=== PATIENT | female | born 1950 | race Caucasian/White ===

== ENCOUNTER 2017-11-26 22:10 | Emergency (ER) | payer MEDICARE ==
[2017-11-26] MEDS ORDERED: ONDANSETRON 4 MG/2 ML VIAL IVP STA (23:00)
[2017-11-26] MEDS ORDERED: SODIUM CHLORIDE 0.9% 500 ML IV STA (23:00)
--- NOTE | 2017-11-26 23:04 | ED ---
General Adult HPI - General Chief complaint: Abdominal Pain Stated complaint: Vomiting Time Seen by Provider: 11/26/17 22:45 Source: patient, RN notes reviewed Mode of arrival: ambulatory Limitations: no limitations - History of Present Illness Initial comments: 67-year-old female presents for evaluation of left upper quadrant abdominal pain. Patient's pain began abruptly several hours prior to presentation. She has had 5-6 episodes of vomiting which according to the patient has been bilious. She's had severe nausea associated with this. No blood in the vomit. Patient had a normal bowel movement this morning but has not passed gas since the development of her pain. She does have history of appendectomy, hysterectomy, cholecystectomy. No fever or chills. No dysuria. She does admit to decreased by mouth intake over the past 12 hours. She has also having some low back pain which she attributes to moving heavy boxes throughout the day today. - Related Data Previous Rx's Medication Instructions Recorded Ondansetron Odt [Zofran Odt] 4 mg PO Q8HR PRN #10 tab 11/27/17 Allergies Allergy/AdvReac Type Severity Reaction Status Date / Time Iodinated Contrast- Oral and Allergy Rash/Hives Verified 11/26/17 22:25 IV Dye Review of Systems ROS Statement: Those systems with pertinent positive or pertinent negative responses have been documented in the HPI. ROS Other: All systems not noted in ROS Statement are negative. Past Medical History Past Medical History: Fibromyalgia, GERD/Reflux History of Any Multi-Drug Resistant Organisms: None Reported Past Surgical History: Adenoidectomy, Appendectomy, Cholecystectomy, Hysterectomy, Tonsillectomy Additional Past Surgical History / Comment(s): bilateral knees. Past Psychological History: Depression Smoking Status: Former smoker Past Alcohol Use History: Occasional Past Drug Use History: Marijuana General Exam Limitations: no limitations General appearance: alert, in no apparent distress Head exam: Present: atraumatic, normocephalic Eye exam: Present: normal appearance, PERRL ENT exam: Present: mucous membranes dry Neck exam: Present: normal inspection. Absent: tenderness, meningismus Respiratory exam: Present: normal lung sounds bilaterally. Absent: respiratory distress, wheezes Cardiovascular Exam: Present: regular rate, normal rhythm GI/Abdominal exam: Present: soft, distended, tenderness (Left upper quadrant tenderness to palpation), diminished bowel sounds. Absent: guarding, rebound, rigid Extremities exam: Present: normal inspection, normal capillary refill Neurological exam: Present: alert, oriented X3, CN II-XII intact. Absent: motor sensory deficit Psychiatric exam: Present: normal affect, normal mood Skin exam: Present: warm, dry, intact. Absent: cyanosis, diaphoretic, erythema Course Vital Signs 11/26/17 11/26/17 22:17 23:24 Temperature 97.7 F 97.5 F L Pulse Rate 75 72 Respiratory 16 15 Rate Blood Pressure 161/78 144/71 O2 Sat by Pulse 100 99 Oximetry EKG Findings - EKG Comments: EKG Findings:: EKG: Normal sinus rhythm, ventricular rate 63, IN interval 146, QRS duration 84, QTC 452 no signs of ischemia Medical Decision Making - Medical Decision Making 67-year-old female presenting with vomiting and left upper quadrant abdominal pain. There is concern for obstruction, KUB is negative. CT is obtained this is negative for any acute intra-abdominal process. White blood cell count normal, hemoglobin stable, electrolytes within normal limits, lactic acid is normal at 1.2. Urinalysis does show 1+ ketones consistent with some dehydration from vomiting. Patient given Zofran and IV fluids. On reevaluation she's had no episodes of vomiting while in the emergency department. Pain is somewhat improved. Vital signs remained stable. She is otherwise well-appearing. She will be given outpatient follow-up and will repeat present emergency department with worsening or changing symptoms. - Lab Data Result diagrams: 11/26/17 22:50 11/26/17 22:50 Lab Results 11/26/17 11/26/17 11/26/17 Range/Units 22:50 22:50 22:50 WBC 6.8 (3.8-10.6) k/uL RBC 4.05 (3.80-5.40) m/uL Hgb 12.6 (11.4-16.0) gm/dL Hct 37.8 (34.0-46.0) % MCV 93.2 (80.0-100.0) fL MCH 31.0 (25.0-35.0) pg MCHC 33.3 (31.0-37.0) g/dL RDW 12.9 (11.5-15.5) % Plt Count 307 (150-450) k/uL Neutrophils % 75 % Lymphocytes % 19 % Monocytes % 5 % Eosinophils % 0 % Basophils % 0 % Neutrophils # 5.1 (1.3-7.7) k/uL Lymphocytes # 1.3 (1.0-4.8) k/uL Monocytes # 0.3 (0-1.0) k/uL Eosinophils # 0.0 (0-0.7) k/uL Basophils # 0.0 (0-0.2) k/uL PT (9.0-12.0) sec INR (<1.2) APTT (22.0-30.0) sec Sodium 141 (137-145) mmol/L Potassium 4.0 (3.5-5.1) mmol/L Chloride 103 (98-107) mmol/L Carbon Dioxide 24 (22-30) mmol/L Anion Gap 14 mmol/L BUN 18 H (7-17) mg/dL Creatinine 0.40 L (0.52-1.04) mg/dL Est GFR (CKD-EPI)AfAm >90 (>60 ml/min/1.73 sqM) Est GFR (CKD-EPI)NonAf >90 (>60 ml/min/1.73 sqM) Glucose 124 H (74-99) mg/dL Plasma Lactic Acid Jj 1.2 (0.7-2.0) mmol/L Calcium 10.2 (8.4-10.2) mg/dL Total Bilirubin 0.4 (0.2-1.3) mg/dL AST 23 (14-36) U/L ALT 38 (9-52) U/L Alkaline Phosphatase 56 (38-126) U/L Troponin I (0.000-0.034) ng/mL Total Protein 6.9 (6.3-8.2) g/dL Albumin 4.6 (3.5-5.0) g/dL Amylase 38 (30-110) U/L Lipase 105 (23-300) U/L Urine Color Urine Appearance (Clear) Urine pH (5.0-8.0) Ur Specific [place] (1.001-1.035) Urine Protein (Negative) Urine Glucose (UA) (Negative) Urine Ketones (Negative) Urine Blood (Negative) Urine Nitrite (Negative) Urine Bilirubin (Negative) Urine Urobilinogen (<2.0) mg/dL Ur Leukocyte Esterase (Negative) Urine RBC (0-5) /hpf Urine WBC (0-5) /hpf Ur Squamous Epith Cells (0-4) /hpf Urine Mucus (None) /hpf 11/26/17 11/26/17 11/26/17 Range/Units 22:50 22:50 22:50 WBC (3.8-10.6) k/uL RBC (3.80-5.40) m/uL Hgb (11.4-16.0) gm/dL Hct (34.0-46.0) % MCV (80.0-100.0) fL MCH (25.0-35.0) pg MCHC (31.0-37.0) g/dL RDW (11.5-15.5) % Plt Count (150-450) k/uL Neutrophils % % Lymphocytes % % Monocytes % % Eosinophils % % Basophils % % Neutrophils # (1.3-7.7) k/uL Lymphocytes # (1.0-4.8) k/uL Monocytes # (0-1.0) k/uL Eosinophils # (0-0.7) k/uL Basophils # (0-0.2) k/uL PT 12.2 H (9.0-12.0) sec INR 1.3 H (<1.2) APTT 23.1 (22.0-30.0) sec Sodium (137-145) mmol/L Potassium (3.5-5.1) mmol/L Chloride (98-107) mmol/L Carbon Dioxide (22-30) mmol/L Anion Gap mmol/L BUN (7-17) mg/dL Creatinine (0.52-1.04) mg/dL Est GFR (CKD-EPI)AfAm (>60 ml/min/1.73 sqM) Est GFR (CKD-EPI)NonAf (>60 ml/min/1.73 sqM) Glucose (74-99) mg/dL Plasma Lactic Acid Jj (0.7-2.0) mmol/L Calcium (8.4-10.2) mg/dL Total Bilirubin (0.2-1.3) mg/dL AST (14-36) U/L ALT (9-52) U/L Alkaline Phosphatase (38-126) U/L Troponin I <0.012 (0.000-0.034) ng/mL Total Protein (6.3-8.2) g/dL Albumin (3.5-5.0) g/dL Amylase (30-110) U/L Lipase (23-300) U/L Urine Color Yellow Urine Appearance Clear (Clear) Urine pH 6.5 (5.0-8.0) Ur Specific [place] 1.026 (1.001-1.035) Urine Protein Trace H (Negative) Urine Glucose (UA) Negative (Negative) Urine Ketones 1+ H (Negative) Urine Blood Small H (Negative) Urine Nitrite Negative (Negative) Urine Bilirubin Negative (Negative) Urine Urobilinogen <2.0 (<2.0) mg/dL Ur Leukocyte Esterase Small H (Negative) Urine RBC 10 H (0-5) /hpf Urine WBC 5 (0-5) /hpf Ur Squamous Epith Cells 1 (0-4) /hpf Urine Mucus Rare H (None) /hpf Disposition Clinical Impression: Abdominal pain, Nausea & vomiting Disposition: HOME SELF-CARE Condition: Fair Instructions: Abdominal Pain (ED), Acute Nausea and Vomiting (ED) Prescriptions: Ondansetron Odt [Zofran Odt] 4 mg PO Q8HR PRN #10 tab PRN Reason: Vomiting Is patient prescribed a controlled substance at d/c from ED?: No Referrals: None,Stated [Primary Care Provider] - 1-2 days Ty Dubois MD [STAFF PHYSICIAN] - 1-2 days Time of Disposition: 01:36
[2017-11-26 23:13] LABS: Basophils % (A) 0 %; Eosinophils % (A) 0 %; HCT 37.8 % (34.0-46.0); HGB 12.6 gm/dL (11.4-16.0); Lymphocytes # (A) 1.3 k/uL (1.0-4.8); Lymphocytes % (A) 19 %; MCHC 33.3 g/dL (31.0-37.0); MCV 93.2 fL (80.0-100.0); Mean Platelet Volume 7.4; Monocytes # (A) 0.3 k/uL (0-1.0); Monocytes % (A) 5 %; Neutrophils # (A) 5.1 k/uL (1.3-7.7); Neutrophils % (A) 75 %; Platelet Count 307 k/uL (150-450); RBC 4.05 m/uL (3.80-5.40); RDW 12.9 % (11.5-15.5); WBC 6.8 k/uL (3.8-10.6)
[2017-11-26 23:15] LABS: Appearance,Urine Clear (Clear); Bilirubin,Urine Negative (Negative); Blood,Urine Small (Negative); Color,Urine Yellow; Glucose,Urine (UA) Negative (Negative); Ketones,Urine 1+ (Negative); Leukocyte Esterase,Urine Small (Negative); Mucus,Urine Rare /hpf; Nitrite,Urine Negative (Negative); PH, Urine 6.5 (5.0-8.0); Protein,Urine Trace (Negative); RBC,Urine 10 /hpf (0-5); Specific Gravity,Urine 1.026 (1.001-1.035); Squamous Epithelial Cell,Urine 1 /hpf (0-4); Urobilinogen,Urine <2.0 mg/dL (<2.0); WBC,Urine 5 /hpf (0-5)
[2017-11-26 23:23] LABS: ALT 38 U/L (9-52); AST 23 U/L (14-36); Albumin 4.6 g/dL (3.5-5.0); Alkaline Phosphatase 56 U/L (38-126); Amylase 38 U/L (30-110); Anion Gap 14 mmol/L; Blood Urea Nitrogen 18 mg/dL (7-17); Calcium 10.2 mg/dL (8.4-10.2); Carbon Dioxide 24 mmol/L (22-30); Chloride 103 mmol/L (98-107); Glucose 124 mg/dL (74-99); INR 1.3 (<1.2); Lipase 105 U/L (23-300); Partial Thromboplastin Time 23.1 sec (22.0-30.0); Prothrombin Time 12.2 sec (9.0-12.0); Sodium 141 mmol/L (137-145); Total Bilirubin 0.4 mg/dL (0.2-1.3); Total Protein 6.9 g/dL (6.3-8.2)
[2017-11-26] MEDS ORDERED: IOPAMIDOL-300 CONTRAST 30 ML VIAL (ORAL USE) PO PRN (23:50)
[2017-11-26] MEDS ORDERED: methylPREDNISolone SOD SUCCI 125 MG/2 ML VIAL IV STA (23:51)
[2017-11-26] MEDS ORDERED: FAMOTIDINE 20 MG/2 ML VIAL IV STA (23:51)
[2017-11-26] MEDS ORDERED: diphenhydrAMINE 50 MG/ML 1 ML VIAL IVP STA (23:51)
--- NOTE | 2017-11-26 23:51 | XR ---
EXAMINATION TYPE: XR KUB DATE OF EXAM: 11/26/2017 COMPARISON: NONE HISTORY: Abdominal pain TECHNIQUE: 2 views FINDINGS: There is no sign of intestinal obstruction or pneumoperitoneum. Fecal pattern is normal. Th ere are chest leads. Lung bases are clear. There are no pathologic calcifications over the kidneys. T here are clips from cholecystectomy. There is no evidence of a mass. IMPRESSION: Nonacute abdomen.
[2017-11-27] MEDS ORDERED: RX INFO: IV CONTRAST WAS GIVEN 1 EACH MISC MISCELLANE PRN (00:19)
[2017-11-27] MEDS: RX INFO: IV CONTRAST WAS GIVEN 1 EACH MISC MISCELLANE PRN ×2 (00:54→00:55)
--- NOTE | 2017-11-27 01:17 | CT ---
EXAMINATION TYPE: CT abdomen pelvis w con DATE OF EXAM: 11/27/2017 COMPARISON: NONE HISTORY: ABDOMINAL PAIN CT DLP: 548.7 mGycm Automated exposure control for dose reduction was used. TECHNIQUE: Helical acquisition of images was performed from the lung bases through the pelvis. CONTRAST: Performed without Oral Contrast and with IV Contrast, patient injected with 100 mL of Isovue 300. FINDINGS: Lung bases are clear. There is no pleural effusion. Heart size is normal. The liver spleen pancreas appear normal. Bile ducts are not dilated. There are clips from cholecystec meri. There is no adrenal mass. Kidneys show satisfactory contrast opacification. There is no hydronephrosi s. Ureters are not dilated. There is no retroperitoneal adenopathy. There is no ascites. I see no int estinal wall thickening. There are no dilated loops. Bladder distends smoothly. Appendix is not defin itely seen. There is no sign of appendicitis. There is no sign of pelvic mass. There is spondylolysis of L5 with first-degree L5-S1 spondylolisthesis. IMPRESSION: NEGATIVE CT SCAN OF THE ABDOMEN AND PELVIS. I DO NOT SEE A CAUSE FOR ABDOMINAL PAIN. L5 SPONDYLOLYSIS WITH FIRST-DEGREE L5-S1 SPONDYLOLISTHESIS.
[2017-11-27 02:24] VITALS: BP 124/72; PULSE 67; RESP 18; TEMP 98.7
== END 2017-11-27 02:24 | disposition home or self-care (01) ==
LOC: EC 22:10
DX: R10.12 Left upper quadrant pain (principal); R11.2 Nausea with vomiting, unspecified; R82.4 Acetonuria; R14.0 Abdominal distension (gaseous); M54.5 Low back pain; R63.8 Other symptoms and signs concerning food and fluid intake; Z87.891 Personal history of nicotine dependence; Z91.041 Radiographic dye allergy status; Z90.49 Acquired absence of other specified parts of digestive tract; X50.0XXA Overexertion from strenuous movement or load, initial encounter
CPT/HCPCS: 36415; 93005; 80053; 82150; 83605; 83690; 84484; 85025; 85610; 85730; 81001; 74018; 74177; 99284; 96374; 96375 ×3; J1200; J2930; J2405; Q9967

== ENCOUNTER 2018-01-14 13:59 | Inpatient (IN) | payer MEDICARE ==
[2018-01-14] MEDS ORDERED: ONDANSETRON 4 MG/2 ML VIAL IVP STA (14:20)
[2018-01-14] MEDS ORDERED: SODIUM CHLORIDE 0.9% 1,000 ML IV STA (14:20)
[2018-01-14] MEDS ORDERED: PANTOPRAZOLE 40 MG/10 ML VIAL IVP STA (14:20)
[2018-01-14] MEDS ORDERED: MORPHINE SULFATE 2 MG/ML SYRINGE IV STA (14:20)
--- NOTE | 2018-01-14 14:21 | ED ---
General Adult HPI - General Chief complaint: Abdominal Pain Stated complaint: Vomiting Time Seen by Provider: 01/14/18 14:20 Source: patient, RN notes reviewed, old records reviewed Mode of arrival: wheelchair Limitations: no limitations - History of Present Illness Initial comments: This is a 67-year-old female the ER for evaluation. States she is presenting evaluation regards to abdominal pain severe abdominal pain with nausea vomiting. Patient is mildly cervical secondary to pain and nausea. Patient states she has history of similar pain before, significant history of multiple abdominal surgeries and patient also sever from fibromyalgia. Patient has no adequate pain control prior to emergency room visit - Related Data Home Medications Medication Instructions Recorded Confirmed Ascorbic Acid [Vitamin C] 500 mg PO DAILY 01/14/18 01/14/18 Cholecalciferol [Vitamin D3] 1,000 unit PO DAILY 01/14/18 01/14/18 Gamma E 1 tab PO DAILY 01/14/18 01/14/18 Levothyroxine Sodium [Synthroid] 112 mcg PO DAILY 01/14/18 01/14/18 Ubidecarenone [Co Q-10] 100 mg PO DAILY 01/14/18 01/14/18 Venlafaxine HCl [Effexor XR] 150 mg PO DAILY 01/14/18 01/14/18 Allergies Allergy/AdvReac Type Severity Reaction Status Date / Time Iodinated Contrast- Oral and Allergy Rash/Hives Verified 01/14/18 18:07 IV Dye Review of Systems ROS Statement: Those systems with pertinent positive or pertinent negative responses have been documented in the HPI. ROS Other: All systems not noted in ROS Statement are negative. Past Medical History Past Medical History: Fibromyalgia, GERD/Reflux History of Any Multi-Drug Resistant Organisms: None Reported Past Surgical History: Adenoidectomy, Appendectomy, Cholecystectomy, Hysterectomy, Tonsillectomy Additional Past Surgical History / Comment(s): bilateral knees. Past Psychological History: Depression Smoking Status: Former smoker Past Alcohol Use History: Daily Past Drug Use History: Marijuana General Exam Limitations: no limitations General appearance: alert, in no apparent distress Head exam: Present: atraumatic, normocephalic, normal inspection Eye exam: Present: normal appearance, PERRL, EOMI. Absent: scleral icterus, conjunctival injection, periorbital swelling ENT exam: Present: normal exam, mucous membranes moist Neck exam: Present: normal inspection. Absent: tenderness, meningismus, lymphadenopathy Respiratory exam: Present: normal lung sounds bilaterally. Absent: respiratory distress, wheezes, rales, rhonchi, stridor Cardiovascular Exam: Present: regular rate, normal rhythm, normal heart sounds. Absent: systolic murmur, diastolic murmur, rubs, gallop, clicks GI/Abdominal exam: Present: soft, tenderness, normal bowel sounds. Absent: distended, guarding, rebound, rigid Extremities exam: Present: normal inspection, full ROM, normal capillary refill. Absent: tenderness, pedal edema, joint swelling, calf tenderness Back exam: Present: normal inspection Neurological exam: Present: alert, oriented X3, CN II-XII intact Psychiatric exam: Present: normal affect, normal mood Skin exam: Present: warm, dry, intact, normal color. Absent: rash Course Vital Signs 01/14/18 01/14/18 01/14/18 14:05 15:35 17:21 Temperature 98.3 F 98.8 F 98.5 F Pulse Rate 84 78 74 Respiratory 18 18 18 Rate Blood Pressure 134/88 150/70 112/68 O2 Sat by Pulse 99 99 98 Oximetry - Reevaluation(s) Reevaluation #1: 01/14/18 15:23 Medical record is reviewed including prior surgical history Reevaluation #2: 01/14/18 19:10 Medical record is reviewed, pain is controlled Medical Decision Making - Medical Decision Making 67 female the ER for evaluation, positive SBO, history of multiple surgeries. Patient be admitted for nothing by mouth and pain control. - Lab Data Result diagrams: 01/14/18 14:27 01/14/18 14:27 Lab Results 01/14/18 01/14/18 01/14/18 Range/Units 14:27 14:27 14:27 WBC 13.3 H (3.8-10.6) k/uL RBC 5.18 (3.80-5.40) m/uL Hgb 16.0 D (11.4-16.0) gm/dL Hct 48.3 H (34.0-46.0) % MCV 93.2 (80.0-100.0) fL MCH 30.8 (25.0-35.0) pg MCHC 33.0 (31.0-37.0) g/dL RDW 13.1 (11.5-15.5) % Plt Count 366 (150-450) k/uL Neutrophils % 81 % Lymphocytes % 14 % Monocytes % 4 % Eosinophils % 1 % Basophils % 0 % Neutrophils # 10.8 H (1.3-7.7) k/uL Lymphocytes # 1.8 (1.0-4.8) k/uL Monocytes # 0.5 (0-1.0) k/uL Eosinophils # 0.1 (0-0.7) k/uL Basophils # 0.0 (0-0.2) k/uL Sodium 139 (137-145) mmol/L Potassium 4.2 (3.5-5.1) mmol/L Chloride 97 L (98-107) mmol/L Carbon Dioxide 26 (22-30) mmol/L Anion Gap 16 mmol/L BUN 20 H (7-17) mg/dL Creatinine 0.50 L (0.52-1.04) mg/dL Est GFR (CKD-EPI)AfAm >90 (>60 ml/min/1.73 sqM) Est GFR (CKD-EPI)NonAf >90 (>60 ml/min/1.73 sqM) Glucose 153 H (74-99) mg/dL Lactic Ac Sepsis Rflx Plasma Lactic Acid Jj (0.7-2.0) mmol/L Calcium 11.2 H (8.4-10.2) mg/dL Total Bilirubin 0.7 (0.2-1.3) mg/dL AST 26 (14-36) U/L ALT 34 (9-52) U/L Alkaline Phosphatase 69 (38-126) U/L Total Creatine Kinase 50 (30-135) U/L CK-MB (CK-2) 3.0 H* (0.0-2.4) ng/mL CK-MB (CK-2) Rel Index 6.0 Troponin I <0.012 (0.000-0.034) ng/mL Total Protein 8.0 (6.3-8.2) g/dL Albumin 5.1 H (3.5-5.0) g/dL Amylase 54 (30-110) U/L Lipase 98 (23-300) U/L 01/14/18 01/14/18 Range/Units 14:27 15:11 WBC (3.8-10.6) k/uL RBC (3.80-5.40) m/uL Hgb (11.4-16.0) gm/dL Hct (34.0-46.0) % MCV (80.0-100.0) fL MCH (25.0-35.0) pg MCHC (31.0-37.0) g/dL RDW (11.5-15.5) % Plt Count (150-450) k/uL Neutrophils % % Lymphocytes % % Monocytes % % Eosinophils % % Basophils % % Neutrophils # (1.3-7.7) k/uL Lymphocytes # (1.0-4.8) k/uL Monocytes # (0-1.0) k/uL Eosinophils # (0-0.7) k/uL Basophils # (0-0.2) k/uL Sodium (137-145) mmol/L Potassium (3.5-5.1) mmol/L Chloride (98-107) mmol/L Carbon Dioxide (22-30) mmol/L Anion Gap mmol/L BUN (7-17) mg/dL Creatinine (0.52-1.04) mg/dL Est GFR (CKD-EPI)AfAm (>60 ml/min/1.73 sqM) Est GFR (CKD-EPI)NonAf (>60 ml/min/1.73 sqM) Glucose (74-99) mg/dL Lactic Ac Sepsis Rflx Y Plasma Lactic Acid Jj 2.1 H* (0.7-2.0) mmol/L Calcium (8.4-10.2) mg/dL Total Bilirubin (0.2-1.3) mg/dL AST (14-36) U/L ALT (9-52) U/L Alkaline Phosphatase (38-126) U/L Total Creatine Kinase (30-135) U/L CK-MB (CK-2) (0.0-2.4) ng/mL CK-MB (CK-2) Rel Index Troponin I (0.000-0.034) ng/mL Total Protein (6.3-8.2) g/dL Albumin (3.5-5.0) g/dL Amylase (30-110) U/L Lipase (23-300) U/L - Radiology Data Radiology results: report reviewed (CT of abdomen and pelvis positive for SBO), image reviewed Disposition Clinical Impression: SBO (small bowel obstruction) Disposition: ADMITTED IP TO THIS HOSP Condition: Good Is patient prescribed a controlled substance at d/c from ED?: No Referrals: None,Stated [Primary Care Provider] - 1-2 days
[2018-01-14 14:46] LABS: Basophils % (A) 0 %; Eosinophils # (A) 0.1 k/uL (0-0.7); Eosinophils % (A) 1 %; HCT 48.3 % (34.0-46.0); Lymphocytes # (A) 1.8 k/uL (1.0-4.8); Lymphocytes % (A) 14 %; MCH 30.8 pg (25.0-35.0); MCV 93.2 fL (80.0-100.0); Mean Platelet Volume 6.7; Monocytes # (A) 0.5 k/uL (0-1.0); Monocytes % (A) 4 %; Neutrophils # (A) 10.8 k/uL (1.3-7.7); Neutrophils % (A) 81 %; Platelet Count 366 k/uL (150-450); RBC 5.18 m/uL (3.80-5.40); RDW 13.1 % (11.5-15.5); WBC 13.3 k/uL (3.8-10.6)
[2018-01-14 14:58] LABS: ALT 34 U/L (9-52); AST 26 U/L (14-36); Albumin 5.1 g/dL (3.5-5.0); Alkaline Phosphatase 69 U/L (38-126); Amylase 54 U/L (30-110); Anion Gap 16 mmol/L; Blood Urea Nitrogen 20 mg/dL (7-17); Calcium 11.2 mg/dL (8.4-10.2); Carbon Dioxide 26 mmol/L (22-30); Chloride 97 mmol/L (98-107); Glucose 153 mg/dL (74-99); Lipase 98 U/L (23-300); Potassium 4.2 mmol/L (3.5-5.1); Sodium 139 mmol/L (137-145); Total Bilirubin 0.7 mg/dL (0.2-1.3)
[2018-01-14 15:10] LABS: Creatine Kinase 50 U/L (30-135)
[2018-01-14] MEDS ORDERED: FAMOTIDINE 20 MG/2 ML VIAL IV STA (15:11)
[2018-01-14] MEDS ORDERED: methylPREDNISolone SOD SUCCI 125 MG/2 ML VIAL IV STA (15:11)
[2018-01-14] MEDS ORDERED: diphenhydrAMINE 50 MG/ML 1 ML VIAL IVP STA (15:11)
[2018-01-14 15:22] LABS: Troponin I <0.012 ng/mL (0.000-0.034)
--- NOTE | 2018-01-14 16:33 | CT ---
EXAMINATION TYPE: CT abdomen pelvis w con DATE OF EXAM: 01/14/2018 COMPARISON: NONE HISTORY: Mid Abdominal pain with nausea and vomiting CT DLP: 578.3 mGycm Automated exposure control for dose reduction was used. TECHNIQUE: Helical acquisition of images from the lung bases through the pelvis have been completed. CONTRAST: Performed without Oral Contrast and with IV Contrast, patient injected with 100 mL of Isovue 300. FINDINGS: Distal esophagus appears somewhat thickened, there may be small hiatal hernia. LUNG BASES: Minimal dependent atelectatic changes. AORTA: No significant abnormality is appreciated. LIVER/GB: Liver shows no significant abnormality, there is mild prominence of intrahepatic biliary du cts, patient is post cholecystectomy. PANCREAS: No significant abnormality is seen. SPLEEN: No significant abnormality is seen. ADRENALS: No significant abnormality is seen. KIDNEYS: No significant abnormality is seen. REPRODUCTIVE ORGANS: No significant abnormality is seen BOWEL: Small bowel loops are distended and fluid-filled proximally. In the left hemiabdomen, axial i mages 41 through 48e suspect there is a transition point present, bowel loops are decompressed more d istally. Postop changes are noted to the anterior abdominal wall. Uterus and adnexal structures are u nremarkable. FREE AIR: No Free Air visible. ASCITES: None visible. PELVIC ADENOPATHY: None visualized. RETROPERITONEAL ADENOPATHY: No Retroperitoneal Adenopathy visible. URINARY BLADDER: No significant abnormality is seen. OSSEOUS STRUCTURES: Bilateral spondylolysis present at L5, anterolisthesis grade 1 L5-S1. There is a ssociated loss of disc height.. IMPRESSION: FINDINGS SUGGEST SMALL BOWEL OBSTRUCTION, CORRELATE. POSTOP CHANGES.
[2018-01-14] MEDS ORDERED: SODIUM CHLORIDE 0.9% 1,000 ML IV ONE (19:06)
[2018-01-14] MEDS ORDERED: DICYCLOMINE 10 MG/ML 2 ML AMP IM STA (19:08)
[2018-01-14] MEDS ORDERED: MORPHINE SULFATE 2 MG/ML SYRINGE IVP PRN (19:08)
[2018-01-14] MEDS ORDERED: MORPHINE SULFATE 2 MG/ML SYRINGE IVP STA (19:08)
[2018-01-14] MEDS ORDERED: ONDANSETRON 4 MG/2 ML VIAL IVP PRN (19:08)
[2018-01-14 22:08] VITALS: BMI 27.3
[2018-01-14 22:32] VITALS: RESP 16; TEMP 97.7
--- NOTE | 2018-01-14 22:37 | P.HPIM ---
History of Present Illness H&P Date: 01/14/18 Chief Complaint: abd pain and vomiting of 1 day duration 67-year-old female with history of GERD and multiple abdominal surgeries. Presented to the hospital with 1 day complaint of central abdominal pain colicky in nature 10 out of 10 in severity not related to food, nonradiating, associated with vomiting greenish in color nonbloody no coffee-ground, attacks associated with sweating and chills and heart racing she reports feeling febrile. She reports that she vomited at least 10 times yesterday. And she admits to frequent attack of abdominal pain last one was month ago she was to the ER but she got better and she was not given a diagnosis. She denies any sick contact or recent traveling, she denies any diarrhea. She continues to pass gases. She denies any urinary symptoms. She denies any chest pain or trouble breathing. She denies any GI bleeding. She admits to regular drinking 3 times a week but denies any withdrawal symptoms when she doesn't drink she can go 2 weeks without drinking. Workup in the ED including CT of the abdomen suggested small bowel obstruction. She was kept nothing by mouth started on IV fluids and admitted for further care and general surgery evaluation. Review of Systems Pertinent positives as noted in HPI. All other systems were reviewed and are negative Past Medical History Past Medical History: Fibromyalgia, GERD/Reflux History of Any Multi-Drug Resistant Organisms: None Reported Past Surgical History: Adenoidectomy, Appendectomy, Cholecystectomy, Hysterectomy, Tonsillectomy Additional Past Surgical History / Comment(s): bilateral knees. Past Psychological History: Depression Smoking Status: Former smoker Past Alcohol Use History: Daily Past Drug Use History: Marijuana - Past Family History sister Additional Family Medical History / Comment(s): Breast cancer Mother Family Medical History: Congestive Heart Failure (CHF), Diabetes Mellitus, Hypertension Medications and Allergies Home Medications Medication Instructions Recorded Confirmed Type Ascorbic Acid [Vitamin C] 500 mg PO DAILY 01/14/18 01/14/18 History Cholecalciferol [Vitamin D3] 1,000 unit PO DAILY 01/14/18 01/14/18 History Gamma E 1 tab PO DAILY 01/14/18 01/14/18 History Levothyroxine Sodium [Synthroid] 112 mcg PO DAILY 01/14/18 01/14/18 History Ubidecarenone [Co Q-10] 100 mg PO DAILY 01/14/18 01/14/18 History Venlafaxine HCl [Effexor XR] 150 mg PO DAILY 01/14/18 01/14/18 History Allergies Allergy/AdvReac Type Severity Reaction Status Date / Time Iodinated Contrast- Oral and Allergy Rash/Hives Verified 01/14/18 18:07 IV Dye Physical Exam Vitals: Vital Signs Temp Pulse Resp BP Pulse Ox 01/14/18 21:33 98.4 F 80 18 124/60 98 01/14/18 19:42 98.4 F 69 18 142/66 98 01/14/18 17:21 98.5 F 74 18 112/68 98 01/14/18 15:35 98.8 F 78 18 150/70 99 01/14/18 14:05 98.3 F 84 18 134/88 99 Intake and Output 01/14/18 01/14/18 01/14/18 06:59 14:59 22:59 Other: Weight 65.771 kg Constitutional: No acute distress, conversant, pleasant Eyes: Anicteric sclerae, moist conjunctiva, no lid-lag Pupils equal round reactive to light ENMT: NC/AT Oropharynx clear, no erythema, or exudates Neck: Supple, FROM, no masses, or JVD No carotid bruits No thyromegaly Lungs: Clear to auscultation Clear to percussion Normal respiratory effort, no accessory muscle use Cardiovascular: Heart regular in rate and rhythm, No murmurs, gallops, or rubs No peripheral edema Abdominal: Soft, very mild distension Nontender, no guarding, rebound or rigidity Abdomen moving with respiration Normoactive bowel sounds No hepatomegaly, No splenomegaly No palpable mass No abdominal wall hernia noted Skin: Normal temperature, tone, texture, turgor No induration No subcutaneous nodules No rash, lesions No ulcers Extremities: No digital cyanosis No clubbing Pedal pulses intact and symmetrical Radial pulses intact and symmetrical No calf tenderness Psychiatric: Alert and oriented to person, place and time Appropriate affect fair judgment Neuro Muscles Strength 5/5 in all 4 extremities Sensation to light touch grossly present throughout Cranial nerves II-XII grossly intact No focal sensory deficits Lymphatics: no palpable cervical or supraclavicular , or inguinal lymph nodes Results CBC & Chem 7: 01/14/18 14:27 06/30/18 14:27 Labs: Abnormal Lab Results - Last 24 Hours (Table) 01/14/18 01/14/18 01/14/18 Range/Units 14:27 14:27 14:27 WBC 13.3 H (3.8-10.6) k/uL Hct 48.3 H (34.0-46.0) % Neutrophils # 10.8 H (1.3-7.7) k/uL Chloride 97 L (98-107) mmol/L BUN 20 H (7-17) mg/dL Creatinine 0.50 L (0.52-1.04) mg/dL Glucose 153 H (74-99) mg/dL Plasma Lactic Acid Jj (0.7-2.0) mmol/L Calcium 11.2 H (8.4-10.2) mg/dL CK-MB (CK-2) 3.0 H* (0.0-2.4) ng/mL Albumin 5.1 H (3.5-5.0) g/dL 01/14/18 Range/Units 14:27 WBC (3.8-10.6) k/uL Hct (34.0-46.0) % Neutrophils # (1.3-7.7) k/uL Chloride (98-107) mmol/L BUN (7-17) mg/dL Creatinine (0.52-1.04) mg/dL Glucose (74-99) mg/dL Plasma Lactic Acid Jj 2.1 H* (0.7-2.0) mmol/L Calcium (8.4-10.2) mg/dL CK-MB (CK-2) (0.0-2.4) ng/mL Albumin (3.5-5.0) g/dL Assessment and Plan Assessment: 67-year-old female with history of GERD and hypothyroidism, patient admitted with anticipated length of stay of more than 2 days due to small bowel obstruction with greenish vomiting, she was also found to have hypercalcemia, and mild lactic acidosis. Patient will be treated with IV fluid and conservative management until evaluated by general surgery for further recommendations. Plan: #Small bowel obstruction rule out mechanical obstruction with history of multiple surgeries #Mild lactic acidosis, improved Gen. surgery's consult Nothing by mouth IV fluid hydration and aggressive Somatic control of nausea and vomiting Pain controll with morphine Monitor I's and O's Check electrolytes and correct accordingly #Hypercalcemia, unknown underlying cause possible dehydration for now due to poor by mouth intake Aggressive IV fluid hydration for natri uresis Close monitoring of calcium level #Hypothyroidism Check TSH Continue levothyroxine #DVT prophylaxis subcu 3 times a day #Mild leukocytosis, afebrile for now #Hyperglycemia without diagnosis of diabetes Check A1c Surrogate decision-maker: Patient Jose CODE STATUS: Full code Discussed with: Patient, ER, RN Anticipated discharge: 48-[address]: Home A total of 50 minutes was spent on the care of this complex patient more than 50 % of the time was spent in counseling and care coordination.
[2018-01-15] MEDS: HEPARIN SODIUM,PORCINE 5,000 UNIT/ML 1 ML VIAL SQ SCH ×2 (00:25→07:21)
[2018-01-15] MEDS: METOCLOPRAMIDE 5 MG/ML 2 ML VIAL IVP SCH ×3 (00:26→11:30)
[2018-01-15 01:00] LABS: Appearance,Urine Clear (Clear); Bilirubin,Urine Negative (Negative); Blood,Urine Negative (Negative); Color,Urine Yellow; Glucose,Urine (UA) Negative (Negative); Ketones,Urine Trace (Negative); Leukocyte Esterase,Urine Negative (Negative); Nitrite,Urine Negative (Negative); Protein,Urine Trace (Negative); Specific Gravity,Urine 1.044 (1.001-1.035); Urobilinogen,Urine <2.0 mg/dL (<2.0)
[2018-01-15 05:52] VITALS: BP 97/50; PULSE 68
[2018-01-15 08:15] LABS: ALT 29 U/L (9-52); AST 20 U/L (14-36); Albumin 3.4 g/dL (3.5-5.0); Alkaline Phosphatase 42 U/L (38-126); Anion Gap 7 mmol/L; Blood Urea Nitrogen 14 mg/dL (7-17); Calcium 9.1 mg/dL (8.4-10.2); Carbon Dioxide 29 mmol/L (22-30); Chloride 102 mmol/L (98-107); Glucose 95 mg/dL (74-99); Sodium 138 mmol/L (137-145); Total Bilirubin 0.5 mg/dL (0.2-1.3); Total Protein 5.3 g/dL (6.3-8.2)
[2018-01-15 08:16] LABS: Basophils % (A) 0 %; Eosinophils % (A) 0 %; HCT 37.2 % (34.0-46.0); Lymphocytes # (A) 1.9 k/uL (1.0-4.8); Lymphocytes % (A) 22 %; MCH 31.1 pg (25.0-35.0); MCHC 32.5 g/dL (31.0-37.0); MCV 95.7 fL (80.0-100.0); Mean Platelet Volume 6.8; Monocytes # (A) 0.4 k/uL (0-1.0); Monocytes % (A) 5 %; Neutrophils % (A) 72 %; Platelet Count 304 k/uL (150-450); RBC 3.89 m/uL (3.80-5.40); RDW 12.9 % (11.5-15.5); WBC 8.4 k/uL (3.8-10.6)
[2018-01-15 08:23] LABS: HGB 12.1 gm/dL (11.4-16.0)
[2018-01-15] MEDS ORDERED: PANTOPRAZOLE 40 MG/10 ML VIAL IVP SCH (09:00)
[2018-01-15] MEDS ORDERED: POLYETHYLENE GLYCOL 3350 17 GM POWD.PACK PO STA (12:03)
--- NOTE | 2018-01-15 12:03 | P.PN ---
Progress Note - Text Progress Note Date: 01/15/18 Hospitalist interval note: Patient is feeling well. She is already started passing gas. She would like a diet. We will advance to full liquid diet at a dose of MiraLAX. If she is able to tolerate lunch and has a bowel movement may be able to discharge today. Formal progress note or discharge summary to follow pending course. Case discussed with Dr. Mcdonald
--- NOTE | 2018-01-15 13:42 | P.GSCN ---
History of Present Illness Consult date: 01/15/18 History of present illness: This is a 67-year-old female has had multiple abdominal surgeries in the past. She states that she began experiencing increasing abdominal pain bloating and nausea vomiting yesterday. She states that she gets abdominal pain in the same spot in her midabdomen frequently however this is the first time that she's had to be hospitalized for this symptom. She denies any history of bowel obstruction in the past. She states that since her hospitalization she began feeling much better she is no longer nauseous she is passing gas no bowel movement. Past Medical History Past Medical History: Fibromyalgia, GERD/Reflux History of Any Multi-Drug Resistant Organisms: None Reported Past Surgical History: Adenoidectomy, Appendectomy, Cholecystectomy, Hysterectomy, Tonsillectomy Additional Past Surgical History / Comment(s): bilateral knees. Past Anesthesia/Blood Transfusion Reactions: No Reported Reaction Past Psychological History: Depression Smoking Status: Former smoker Past Alcohol Use History: Daily Past Drug Use History: Marijuana - Past Family History Mother Family Medical History: Congestive Heart Failure (CHF), Diabetes Mellitus, Hypertension sister Additional Family Medical History / Comment(s): Breast cancer Medications and Allergies Home Medications Medication Instructions Recorded Confirmed Type Ascorbic Acid [Vitamin C] 500 mg PO DAILY 01/14/18 01/14/18 History Cholecalciferol [Vitamin D3] 1,000 unit PO DAILY 01/14/18 01/14/18 History Gamma E 1 tab PO DAILY 01/14/18 01/14/18 History Levothyroxine Sodium [Synthroid] 112 mcg PO DAILY 01/14/18 01/14/18 History Ubidecarenone [Co Q-10] 100 mg PO DAILY 01/14/18 01/14/18 History Venlafaxine HCl [Effexor XR] 150 mg PO DAILY 01/14/18 01/14/18 History Allergies Allergy/AdvReac Type Severity Reaction Status Date / Time Iodinated Contrast- Oral and Allergy Rash/Hives Verified 01/14/18 18:07 IV Dye Surgical - Exam Osteopathic Statement: *. No significant issues noted on an osteopathic structural exam other than those noted in the History and Physical/Consult. Vital Signs Temp Pulse Resp BP Pulse Ox 98.3 F 84 18 134/88 99 01/14/18 14:05 01/14/18 14:05 01/14/18 14:05 01/14/18 14:05 01/14/18 14:05 - General well developed, well nourished, no distress - Neck trachea midline - Respiratory normal expansion, normal respiratory effort - Cardiovascular Rhythm: regular - Abdomen Soft mild distention nontender to palpation - Neurologic normal coordination, normal sensation - Psychiatric oriented to time, oriented to person, oriented to place Results - Labs 01/15/18 07:04 01/15/18 07:04 Abnormal Lab Results - Last 24 Hours (Table) 01/14/18 01/14/18 01/14/18 Range/Units 14:27 14:27 14:27 WBC 13.3 H (3.8-10.6) k/uL Hct 48.3 H (34.0-46.0) % Neutrophils # 10.8 H (1.3-7.7) k/uL Chloride 97 L (98-107) mmol/L BUN 20 H (7-17) mg/dL Creatinine 0.50 L (0.52-1.04) mg/dL Glucose 153 H (74-99) mg/dL Plasma Lactic Acid Jj (0.7-2.0) mmol/L Calcium 11.2 H (8.4-10.2) mg/dL CK-MB (CK-2) 3.0 H* (0.0-2.4) ng/mL Total Protein (6.3-8.2) g/dL Albumin 5.1 H (3.5-5.0) g/dL Ur Specific [place] (1.001-1.035) Urine Protein (Negative) Urine Ketones (Negative) 01/14/18 01/15/18 01/15/18 Range/Units 14:27 00:50 07:04 WBC (3.8-10.6) k/uL Hct (34.0-46.0) % Neutrophils # (1.3-7.7) k/uL Chloride (98-107) mmol/L BUN (7-17) mg/dL Creatinine (0.52-1.04) mg/dL Glucose (74-99) mg/dL Plasma Lactic Acid Jj 2.1 H* (0.7-2.0) mmol/L Calcium (8.4-10.2) mg/dL CK-MB (CK-2) (0.0-2.4) ng/mL Total Protein 5.3 L (6.3-8.2) g/dL Albumin 3.4 L (3.5-5.0) g/dL Ur Specific [place] 1.044 H (1.001-1.035) Urine Protein Trace H (Negative) Urine Ketones Trace H (Negative) Microbiology - Last 24 Hours (Table) 01/15/18 00:50 Urine Culture - Preliminary Urine,Voided Diabetes panel 01/14/18 01/15/18 Range/Units 14:27 07:04 Sodium 139 138 (137-145) mmol/L Potassium 4.2 4.0 (3.5-5.1) mmol/L Chloride 97 L 102 (98-107) mmol/L Carbon Dioxide 26 29 (22-30) mmol/L BUN 20 H 14 (7-17) mg/dL Creatinine 0.50 L 0.57 (0.52-1.04) mg/dL Glucose 153 H 95 (74-99) mg/dL Calcium 11.2 H 9.1 (8.4-10.2) mg/dL AST 26 20 (14-36) U/L ALT 34 29 (9-52) U/L Alkaline Phosphatase 69 42 (38-126) U/L Total Protein 8.0 5.3 L (6.3-8.2) g/dL Albumin 5.1 H 3.4 L (3.5-5.0) g/dL Thyroid panel 01/15/18 Range/Units 07:04 TSH 1.500 (0.465-4.680) mIU/L Calcium panel 01/14/18 01/15/18 Range/Units 14:27 07:04 Calcium 11.2 H 9.1 (8.4-10.2) mg/dL Albumin 5.1 H 3.4 L (3.5-5.0) g/dL Pituitary panel 01/14/18 01/15/18 01/15/18 Range/Units 14:27 07:04 07:04 Sodium 139 138 (137-145) mmol/L Potassium 4.2 4.0 (3.5-5.1) mmol/L Chloride 97 L 102 (98-107) mmol/L Carbon Dioxide 26 29 (22-30) mmol/L BUN 20 H 14 (7-17) mg/dL Creatinine 0.50 L 0.57 (0.52-1.04) mg/dL Glucose 153 H 95 (74-99) mg/dL Calcium 11.2 H 9.1 (8.4-10.2) mg/dL TSH 1.500 (0.465-4.680) mIU/L Adrenal panel 01/14/18 01/15/18 Range/Units 14:27 07:04 Sodium 139 138 (137-145) mmol/L Potassium 4.2 4.0 (3.5-5.1) mmol/L Chloride 97 L 102 (98-107) mmol/L Carbon Dioxide 26 29 (22-30) mmol/L BUN 20 H 14 (7-17) mg/dL Creatinine 0.50 L 0.57 (0.52-1.04) mg/dL Glucose 153 H 95 (74-99) mg/dL Calcium 11.2 H 9.1 (8.4-10.2) mg/dL Total Bilirubin 0.7 0.5 (0.2-1.3) mg/dL AST 26 20 (14-36) U/L ALT 34 29 (9-52) U/L Alkaline Phosphatase 69 42 (38-126) U/L Total Protein 8.0 5.3 L (6.3-8.2) g/dL Albumin 5.1 H 3.4 L (3.5-5.0) g/dL - Imaging CT scan - abdomen: report reviewed, image reviewed CT scan - pelvis: report reviewed, image reviewed Assessment and Plan Assessment: Small bowel obstruction likely secondary to adhesions from previous surgeries Plan: The small bowel obstruction appears to be resolving. She is having flatus. Patient may be started on a clear liquid diet and advanced as tolerated once she begins having a bowel movement she may be discharged no plans for acute surgical intervention at this time
--- NOTE | 2018-01-15 16:38 | P.DS ---
Providers Date of admission: 01/14/18 19:06 Expected date of discharge: 01/15/18 Attending physician: Yumiko Verduzco, Consults: 01/14/18 19:06 Consult Physician Routine Consulting Provider: Azeem Mcdonald Consult Reason/Comments: SBO Do you want consulting provider notified?: Yes Primary care physician: Stated None Hospital Course: Discharge diagnosis: Small bowel obstruction Lactic acidosis Hypercalcemia Dehydration Hypothyroidism Leukocytosis Hyperglycemia Hospital Course: Patient is a 67-year-old female with a history of GERD, multiple abdominal surgeries, hypothyroidism, and fibromyalgia who presented to the hospital complaints of abdominal pain. In the emergency department she underwent an extensive evaluation. On arrival her vital signs are found to be within normal limits. Initial laboratory analysis showed a lactic acidosis, dehydration, leukocytosis, and hypercalcemia. CT abdomen and pelvis showed small bowel obstruction with transition point. She was given pain control IV fluids and was admitted to the general medical floor. By the morning after admission her pain had subsided completely and she was no longer nauseous. Her labs had normalized with IV fluids. Her leukocytosis resolved. She was passing gas. She was started on a full liquid diet which she tolerated. She was started on Reglan and MiraLAX and had a bowel movement. She was seen by surgery who agreed that she be started on a diet and discharged after her bowel movement. She was anxious to go home and determined stable for discharge. We informed her to re-presented to the hospital should this recur. I also had a long discussion with her that this may be due to abdominal scar tissue and adhesions and she has a likelihood of recurrence. She currently does not have a primary care physician and she is referred to Dr. Lorne Montgomery. She initially was admitted as inpatient status as we felt she would be here likely greater than 2 days of the bowel obstruction and transition point, however she improved much faster than anticipated. Patient seen and examined at bedside. Abdominal pain resolved. No longer nauseous. Feeling great. Wants to go home. No chest pain or shortness of breath. Vital signs reviewed and stable. General: non toxic, no distress, appears at stated age Derm: warm, dry Head: atraumatic, normocephalic, symmetric Eyes: EOMI, no lid lag, anicteric sclera Mouth: no lip lesion, mucus membranes moist Cardiovascular: S1S2 reg, no murmur, positive posterior tibial pulse bilateral, Lungs: CTA bilateral, no rhonchi, no rales , no accessory muscle use Abdominal: soft, tender to deep palpation left upper quadrant , no guarding, no appreciable organomegaly Ext: no gross muscle atrophy, no edema, no contractures Neuro: CN II-XI grossly intact, no focal neuro deficits Psych: Alert, oriented, appropriate affect A total of 25 minutes of time were spent preparing this complex discharge summary . Pertinent Studies: CT abdomen and pelvis-small bowel obstruction with transition point present in the left hemiabdomen Patient Condition at Discharge: Good Plan - Discharge Summary Discharge Rx Participant: Yes New Discharge Prescriptions: Continue Venlafaxine HCl [Effexor XR] 150 mg PO DAILY Levothyroxine Sodium [Synthroid] 112 mcg PO DAILY Cholecalciferol [Vitamin D3] 1,000 unit PO DAILY Ascorbic Acid [Vitamin C] 500 mg PO DAILY Ubidecarenone [Co Q-10] 100 mg PO DAILY Gamma E 1 tab PO DAILY Discharge Medication List Ascorbic Acid [Vitamin C] 500 mg PO DAILY 01/14/18 [History] Cholecalciferol [Vitamin D3] 1,000 unit PO DAILY 01/14/18 [History] Gamma E 1 tab PO DAILY 01/14/18 [History] Levothyroxine Sodium [Synthroid] 112 mcg PO DAILY 01/14/18 [History] Ubidecarenone [Co Q-10] 100 mg PO DAILY 01/14/18 [History] Venlafaxine HCl [Effexor XR] 150 mg PO DAILY 01/14/18 [History] Follow up Appointment(s)/Referral(s): Lorne Montgomery MD [STAFF PHYSICIAN] - 1 Week (pt to make own appointment, office closed at time of discharge ) None,Stated [Primary Care Provider] - 1-2 days Patient Instructions/Handouts: Bowel Obstruction (DC) Activity/Diet/Wound Care/Special Instructions: Full liquid diet today, if feeling well than advance to soft diet in the morning. Activity: as tolerated Discharge Disposition: HOME SELF-CARE Pending Studies Pending Results: Hemoglobin A1c
[2018-01-16 10:11] LABS: Hemoglobin A1C 5.8 % (4.0-6.0)
== END 2018-01-15 14:51 | disposition home or self-care (01) | DRG 389 ==
LOC: EC 13:59 → 5MS5E 19:06
PROVIDERS: ADMIT Internal Medicine; ATTEND Internal Medicine
DX: K56.50 Intestinal adhesions [bands], unspecified as to partial versus complete obstruction (principal); E87.2 Acidosis; D72.829 Elevated white blood cell count, unspecified; E03.9 Hypothyroidism, unspecified; E83.52 Hypercalcemia; E86.0 Dehydration; F32.9 Major depressive disorder, single episode, unspecified; K21.9 Gastro-esophageal reflux disease without esophagitis; M79.7 Fibromyalgia; Z80.3 Family history of malignant neoplasm of breast; Z82.49 Family history of ischemic heart disease and other diseases of the circulatory system; Z83.3 Family history of diabetes mellitus; Z87.891 Personal history of nicotine dependence; Z90.710 Acquired absence of both cervix and uterus; Z90.49 Acquired absence of other specified parts of digestive tract; Z79.899 Other long term (current) drug therapy; Z79.890 Hormone replacement therapy; Z91.041 Radiographic dye allergy status; R73.9 Hyperglycemia, unspecified
CPT/HCPCS: 36415; 74177; 80053; 81003; 82150; 82550; 82553; 83036; 83605; 83690; 84443; 84484; 85025; 87086; 96361; 96374; 96375; 99285

== ENCOUNTER → 2022-01-20 | Outpatient (CLI) | payer MEDICARE ==
[~2022-01-20] MED LIST: SODIUM CHLORIDE 0.9% 500 ML 500 ML in EMPTY BAG 1 BAG IV PRN; ZOLEDRONIC ACID 5 MG in SODIUM CHLORIDE 0.9% 100 ML IV NR
[2022-01-20 11:29] VITALS: BP 136/82; PULSE 61; RESP 16; TEMP 98.5
== END ==
LOC: PROCWHC3 11:00
PROVIDERS: ATTEND Family Medicine
DX: M81.0 Age-related osteoporosis without current pathological fracture (principal); Z91.041 Radiographic dye allergy status; Z87.891 Personal history of nicotine dependence
CPT/HCPCS: 96365; J3489

== ENCOUNTER 2022-04-24 20:28 | Emergency (ER) | payer MEDICARE ==
[2022-04-24] MEDS ORDERED: MORPHINE SULFATE 4 MG/ML SYRINGE IV STA (21:02)
[2022-04-24] MEDS ORDERED: SODIUM CHLORIDE 0.9% 500 ML 500 ML IV STA (21:02)
[2022-04-24] MEDS ORDERED: methocarbamoL 750 MG TAB PO STA (21:27)
[2022-04-24] MEDS ORDERED: HYDROmorphone 1 MG/ML 1 ML SYRINGE IVP STA (21:27)
[2022-04-24 21:30] LABS: Appearance,Urine Clear (Clear); Bilirubin,Urine Negative (Negative); Blood,Urine Trace (Negative); Color,Urine Light Yellow; Glucose,Urine (UA) Negative (Negative); Ketones,Urine Negative (Negative); Leukocyte Esterase,Urine Negative (Negative); Mucus,Urine Rare /hpf; Nitrite,Urine Negative (Negative); Protein,Urine Negative (Negative); RBC,Urine 2 /hpf (0-5); Specific Gravity,Urine 1.009 (1.001-1.035); Squamous Epithelial Cell,Urine <1 /hpf (0-4); Urobilinogen,Urine <2.0 mg/dL (<2.0); WBC,Urine 2 /hpf (0-5)
[2022-04-24 21:31] LABS: Basophils % (A) 0 %; Eosinophils # (A) 0.1 k/uL (0-0.7); Eosinophils % (A) 1 %; HCT 36.4 % (34.0-46.0); HGB 12.2 gm/dL (11.4-16.0); Lymphocytes # (A) 1.1 k/uL (1.0-4.8); Lymphocytes % (A) 12 %; MCH 31.8 pg (25.0-35.0); MCHC 33.7 g/dL (31.0-37.0); MCV 94.4 fL (80.0-100.0); Mean Platelet Volume 7.5; Monocytes # (A) 0.3 k/uL (0-1.0); Monocytes % (A) 4 %; Neutrophils # (A) 7.5 k/uL (1.3-7.7); Neutrophils % (A) 82 %; Platelet Count 279 k/uL (150-450); RBC 3.85 m/uL (3.80-5.40); RDW 12.7 % (11.5-15.5)
--- NOTE | 2022-04-24 21:51 | XR ---
EXAMINATION TYPE: XR KUB DATE OF EXAM: 04/24/2022 COMPARISON: NONE HISTORY: Abdominal pain TECHNIQUE: 2 views FINDINGS: There is no sign of intestinal obstruction or pneumoperitoneum. Fecal pattern is normal. Th ere is gas down to the rectum. There are clips from cholecystectomy. The lung bases are clear. No cruzito dence of a mass. IMPRESSION: Nonacute abdomen.
[2022-04-24 21:57] LABS: ALT 230 U/L (4-34); AST 512 U/L (14-36); African American GFR (CKD) >90 (>60 ml/min/1.73 sqM); Albumin 4.3 g/dL (3.5-5.0); Alkaline Phosphatase 76 U/L (38-126); Amylase 37 U/L (30-110); Anion Gap 12 mmol/L; Blood Urea Nitrogen 15 mg/dL (7-17); Calcium 8.9 mg/dL (8.4-10.2); Carbon Dioxide 22 mmol/L (22-30); Chloride 100 mmol/L (98-107); Glucose 116 mg/dL (74-99); Lipase 205 U/L (23-300); Non-African American GFR(CKD) >90 (>60 ml/min/1.73 sqM); Potassium 3.8 mmol/L (3.5-5.1); Sodium 134 mmol/L (137-145); Total Bilirubin 0.2 mg/dL (0.2-1.3); Total Protein 6.3 g/dL (6.3-8.2)
[2022-04-24 22:10] VITALS: TEMP 97.8
--- NOTE | 2022-04-24 22:15 | ED ---
Abdominal Pain HPI - General Chief Complaint: Abdominal Pain Stated Complaint: Abdominal Pain Time Seen by Provider: 04/24/22 20:50 Source: patient Mode of arrival: EMS Limitations: no limitations - History of Present Illness Initial Comments: This patient is 71-year-old woman who presents with approximately 3 hours of epigastric and left upper quadrant abdominal pain. The patient states she has been having pains like this intermittently going back a number of years. Patient states the pain is severe, constant, somewhat colicky in intensity. The patient has not noted worsening or relieving factors. MD Complaint: abdominal pain -: hour(s) Location: LUQ, epigastric Radiation: none Migration to: no migration Severity: severe Quality: aching Consistency: constant Improves With: nothing Worsens With: nothing Associated Symptoms: nausea - Related Data Home Medications Medication Instructions Recorded Confirmed Ascorbic Acid [Vitamin C] 500 mg PO DAILY 01/14/18 01/14/18 Cholecalciferol [Vitamin D3 (25 1,000 unit PO DAILY 01/14/18 01/14/18 Mcg = 1000 Iu)] Gamma E 1 tab PO DAILY 01/14/18 01/14/18 Levothyroxine Sodium [Synthroid] 112 mcg PO DAILY 01/14/18 01/14/18 Ubidecarenone [Co Q-10] 100 mg PO DAILY 01/14/18 01/14/18 Venlafaxine HCl [Effexor XR] 150 mg PO DAILY 01/14/18 01/14/18 Allergies Allergy/AdvReac Type Severity Reaction Status Date / Time Iodinated Contrast Media Allergy Rash/Hives Verified 01/20/22 11:24 [Iodinated Contrast- Oral and IV Dye] Review of Systems ROS Statement: Those systems with pertinent positive or pertinent negative responses have been documented in the HPI. ROS Other: All systems not noted in ROS Statement are negative. Constitutional: Denies: fever Respiratory: Denies: cough, dyspnea Cardiovascular: Denies: chest pain, palpitations, edema, syncope Gastrointestinal: Reports: abdominal pain, nausea. Denies: vomiting, diarrhea, constipation, melena, hematochezia Genitourinary: Denies: dysuria, hematuria Musculoskeletal: Denies: back pain Skin: Denies: rash Neurological: Denies: headache, weakness Past Medical History Past Medical History: Fibromyalgia, GERD/Reflux History of Any Multi-Drug Resistant Organisms: None Reported Past Surgical History: Adenoidectomy, Appendectomy, Cholecystectomy, Hysterectomy, Tonsillectomy Additional Past Surgical History / Comment(s): bilateral knees. Past Anesthesia/Blood Transfusion Reactions: No Reported Reaction Smoking Status: Former smoker - Past Family History Mother Family Medical History: Congestive Heart Failure (CHF), Diabetes Mellitus, Hypertension sister Additional Family Medical History / Comment(s): Breast cancer General Exam Limitations: no limitations General appearance: alert, in no apparent distress Head exam: Present: atraumatic, normocephalic Eye exam: Present: normal appearance. Absent: scleral icterus, conjunctival injection Neck exam: Present: normal inspection Respiratory exam: Present: normal lung sounds bilaterally. Absent: respiratory distress, wheezes, rales, rhonchi, stridor Cardiovascular Exam: Present: regular rate, normal rhythm, normal heart sounds. Absent: systolic murmur, diastolic murmur, rubs, gallop GI/Abdominal exam: Present: soft, tenderness (Mild epigastric tenderness without rebound or guarding), normal bowel sounds. Absent: distended, guarding, rebound, rigid, mass, pulsatile mass, hernia Extremities exam: Present: normal inspection, normal capillary refill. Absent: pedal edema, calf tenderness Back exam: Present: normal inspection. Absent: CVA tenderness (R), CVA tenderness (L) Neurological exam: Present: alert Skin exam: Present: warm, dry, intact, normal color. Absent: rash Course Vital Signs 04/24/22 04/24/22 04/24/22 21:14 22:09 23:39 Temperature 98.0 F 97.8 F Pulse Rate 76 74 80 Respiratory 12 20 18 Rate Blood Pressure 130/70 126/72 122/74 O2 Sat by Pulse 98 96 98 Oximetry Medical Decision Making - Medical Decision Making This patient is 71-year-old woman who presents with left upper quadrant abdominal pain. Pains of been intermittent occurring for years. The workup today does show elevation of AST ALT, and for that reason CT is added. I then discussed results with patient and she states "that's probably because I drink." I discussed results with her and she is feeling better would like to go home and will follow-up. We discussed appropriate further care and follow-up as well as return parameters. - Lab Data Result diagrams: 04/24/22 21:24 04/24/22 21:24 Lab Results 04/24/22 04/24/22 04/24/22 Range/Units 21:24 21:24 21:24 WBC 9.0 (3.8-10.6) k/uL RBC 3.85 (3.80-5.40) m/uL Hgb 12.2 (11.4-16.0) gm/dL Hct 36.4 (34.0-46.0) % MCV 94.4 (80.0-100.0) fL MCH 31.8 (25.0-35.0) pg MCHC 33.7 (31.0-37.0) g/dL RDW 12.7 (11.5-15.5) % Plt Count 279 (150-450) k/uL MPV 7.5 Neutrophils % 82 % Lymphocytes % 12 % Monocytes % 4 % Eosinophils % 1 % Basophils % 0 % Neutrophils # 7.5 (1.3-7.7) k/uL Lymphocytes # 1.1 (1.0-4.8) k/uL Monocytes # 0.3 (0-1.0) k/uL Eosinophils # 0.1 (0-0.7) k/uL Basophils # 0.0 (0-0.2) k/uL Sodium 134 L (137-145) mmol/L Potassium 3.8 (3.5-5.1) mmol/L Chloride 100 (98-107) mmol/L Carbon Dioxide 22 (22-30) mmol/L Anion Gap 12 mmol/L BUN 15 (7-17) mg/dL Creatinine 0.48 L (0.52-1.04) mg/dL Est GFR (CKD-EPI)AfAm >90 (>60 ml/min/1.73 sqM) Est GFR (CKD-EPI)NonAf >90 (>60 ml/min/1.73 sqM) Glucose 116 H (74-99) mg/dL Lactic Ac Sepsis Rflx Plasma Lactic Acid Jj (0.7-2.0) mmol/L Calcium 8.9 (8.4-10.2) mg/dL Total Bilirubin 0.2 (0.2-1.3) mg/dL AST 512 H (14-36) U/L ALT 230 H (4-34) U/L Alkaline Phosphatase 76 (38-126) U/L Troponin I (0.000-0.034) ng/mL Total Protein 6.3 (6.3-8.2) g/dL Albumin 4.3 (3.5-5.0) g/dL Amylase 37 (30-110) U/L Lipase 205 (23-300) U/L Urine Color Light Yellow Urine Appearance Clear (Clear) Urine pH 6.0 (5.0-8.0) Ur Specific [place] 1.009 (1.001-1.035) Urine Protein Negative (Negative) Urine Glucose (UA) Negative (Negative) Urine Ketones Negative (Negative) Urine Blood Trace H (Negative) Urine Nitrite Negative (Negative) Urine Bilirubin Negative (Negative) Urine Urobilinogen <2.0 (<2.0) mg/dL Ur Leukocyte Esterase Negative (Negative) Urine RBC 2 (0-5) /hpf Urine WBC 2 (0-5) /hpf Ur Squamous Epith Cells <1 (0-4) /hpf Urine Mucus Rare H (None) /hpf 04/24/22 04/24/22 04/24/22 Range/Units 21:24 21:24 22:03 WBC (3.8-10.6) k/uL RBC (3.80-5.40) m/uL Hgb (11.4-16.0) gm/dL Hct (34.0-46.0) % MCV (80.0-100.0) fL MCH (25.0-35.0) pg MCHC (31.0-37.0) g/dL RDW (11.5-15.5) % Plt Count (150-450) k/uL MPV Neutrophils % % Lymphocytes % % Monocytes % % Eosinophils % % Basophils % % Neutrophils # (1.3-7.7) k/uL Lymphocytes # (1.0-4.8) k/uL Monocytes # (0-1.0) k/uL Eosinophils # (0-0.7) k/uL Basophils # (0-0.2) k/uL Sodium (137-145) mmol/L Potassium (3.5-5.1) mmol/L Chloride (98-107) mmol/L Carbon Dioxide (22-30) mmol/L Anion Gap mmol/L BUN (7-17) mg/dL Creatinine (0.52-1.04) mg/dL Est GFR (CKD-EPI)AfAm (>60 ml/min/1.73 sqM) Est GFR (CKD-EPI)NonAf (>60 ml/min/1.73 sqM) Glucose (74-99) mg/dL Lactic Ac Sepsis Rflx Y Plasma Lactic Acid Jj 2.4 H* (0.7-2.0) mmol/L Calcium (8.4-10.2) mg/dL Total Bilirubin (0.2-1.3) mg/dL AST (14-36) U/L ALT (4-34) U/L Alkaline Phosphatase (38-126) U/L Troponin I <0.012 (0.000-0.034) ng/mL Total Protein (6.3-8.2) g/dL Albumin (3.5-5.0) g/dL Amylase (30-110) U/L Lipase (23-300) U/L Urine Color Urine Appearance (Clear) Urine pH (5.0-8.0) Ur Specific [place] (1.001-1.035) Urine Protein (Negative) Urine Glucose (UA) (Negative) Urine Ketones (Negative) Urine Blood (Negative) Urine Nitrite (Negative) Urine Bilirubin (Negative) Urine Urobilinogen (<2.0) mg/dL Ur Leukocyte Esterase (Negative) Urine RBC (0-5) /hpf Urine WBC (0-5) /hpf Ur Squamous Epith Cells (0-4) /hpf Urine Mucus (None) /hpf Disposition Clinical Impression: Abdominal pain, Elevated aspartate aminotransferase level Disposition: HOME SELF-CARE Condition: Good Instructions (If sedation given, give patient instructions): Abdominal Pain (ED) Is patient prescribed a controlled substance at d/c from ED?: No Referrals: Jeanie Ledesma MD [Primary Care Provider] - 1-2 days Amber Spence MD [STAFF PHYSICIAN] - 1-2 days
[2022-04-24] MEDS ORDERED: MAG HYDROX/AL HYDROX/SIMETH 30 ML, HYOSCYAMINE ELIXIR 10 ML, LIDOCAINE VISCOUS 2% 10 ML PO STA ×3 (22:37)
--- NOTE | 2022-04-24 23:09 | CT ---
EXAMINATION TYPE: CT abdomen pelvis wo con DATE OF EXAM: 04/24/2022 COMPARISON: 01/14/2018 HISTORY: epigastric pain CT DLP: 564.3 mGycm Automated exposure control for dose reduction was used. Images obtained from the diaphragm to the floor the pelvis without contrast. There is no pleural effu guerda. Lung bases are clear of infiltrate. Heart size is normal. No pericardial effusion. Liver spleen and stomach appear intact. There is no evidence of pancreatic mass. There are clips from cholecystectomy. There is no adrenal mass. Kidneys have normal size and contour. There is no hydrone phrosis. Ureters are not dilated. No retroperitoneal adenopathy. The bladder distends smoothly. No in guinal hernia. No free fluid in the pelvis. No pelvic mass. There is no mesenteric edema. No ascites or free air. No sign of a bowel obstruction. There is no evidence of thickened appendix. Appendix not clearly seen. There is a first-degree L5-S1 spondylolisthesis with L5 spondylolysis. No lumbar compression fracture. The bony pelvis is intact. H ip joints are intact. IMPRESSION: No acute abnormality in the abdomen pelvis. There is clearing of the dilated small bowel compared to old exam.
[2022-04-24 23:41] VITALS: BP 122/74; PULSE 80; RESP 18
== END 2022-04-24 23:40 | disposition home or self-care (01) ==
LOC: EC 20:28
DX: R10.13 Epigastric pain (principal); R10.12 Left upper quadrant pain; R74.01 Elevation of levels of liver transaminase levels; Z87.891 Personal history of nicotine dependence; Z90.49 Acquired absence of other specified parts of digestive tract; Z90.89 Acquired absence of other organs; Z91.041 Radiographic dye allergy status
CPT/HCPCS: 99284; 96374; 96375; 96361; 36415; 80053; 82150; 83605; 83690; 84484; 85025; 81001; 74018; 74176; J2270; J1170

== ENCOUNTER → 2023-01-25 | Outpatient (CLI) | payer MEDICARE ==
[2023-01-25 13:49] VITALS: BP 137/84; PULSE 85; RESP 16; TEMP 97.6
== END ==
LOC: PROCWHC3 13:07
PROVIDERS: ATTEND Nurse Practitioner Family
DX: M81.0 Age-related osteoporosis without current pathological fracture (principal)
CPT/HCPCS: 96365; J3489